=== PATIENT | female | born 1995 | race Caucasian/White ===

== ENCOUNTER 2017-09-15 09:07 | Emergency (ER) | payer OTHER ==
[~2017-09-15] VITALS: Ht 165.1 cm; Wt 50.0 kg
[2017-09-15 09:10] VITALS: BP 118/84
[2017-09-15] MEDS ORDERED: BENZ-16 PO (10:30)
== END 2017-09-15 10:38 | disposition home or self-care (01) ==
LOC: ER 09:07
DX: J20.9 Acute bronchitis, unspecified (principal); J98.8 Other specified respiratory disorders
CPT/HCPCS: 99283

== ENCOUNTER 2017-11-10 09:11 | Emergency (ER) | payer OTHER ==
[~2017-11-10] VITALS: Ht 165.1 cm; Wt 52.6 kg
[2017-11-10 09:43] VITALS: BP 106/60
[2017-11-10] MEDS ORDERED: CETI-102 PO (09:59)
== END 2017-11-10 10:12 | disposition home or self-care (01) ==
LOC: ER 09:11
DX: J20.9 Acute bronchitis, unspecified (principal); J30.9 Allergic rhinitis, unspecified
CPT/HCPCS: 99282